=== PATIENT | female | born 1950 | race Caucasian/White ===

== ENCOUNTER 2019-12-18 07:43 | Outpatient (CLI) | payer OTHER | END 2019-12-18 07:52 | disposition home or self-care (01) | LOC: MAMO-SONO 07:43 → SONOGRAMA 08:45 | DX: Z12.31 Encounter for screening mammogram for malignant neoplasm of breast (principal); R10.13 Epigastric pain ==

== ENCOUNTER → 2024-12-13 07:27 | Outpatient (CLI) | payer OTHER | END | disposition home or self-care (01) | LOC: NUCLEAR 07:00 | PROVIDERS: ATTEND Internal Medicine | DX: I20.9 Angina pectoris, unspecified (principal) | CPT/HCPCS: 78452; 93017; A9500 ==